=== PATIENT | female | born 2000 | race Hispanic/Latino ===

== ENCOUNTER 2021-01-28 23:03 | Emergency (ER) | payer MEDICAID ==
[~2021-01-28] VITALS: Ht 157.5 cm; Wt 60.3 kg
[2021-01-28 23:33] VITALS: BP 114/85
[2021-01-28] MEDS ORDERED: LIDOCAINE HCL-MPF 1% 2ML VIAL ONE (23:44)
[2021-01-29] MEDS ORDERED: PHENAZOPYRIDINE HCL 200 MG TABLET PO ONE
[2021-01-29] MEDS ORDERED: CEFTRIAXONE 1G VIAL IM ONE
[2021-01-29 00:26] LABS: BILIRUBIN,URINE Negative (NEGATIVE); COLOR,URINE Red (YELLOW); GLUCOSE, URINE (UA) Negative (NEGATIVE); KETONES,URINE Negative (NEGATIVE); LEUKOCYTE ESTERASE ,URINE Large (NEGATIVE); NITRATE,URINE Negative (NEGATIVE); OCCULT BLOOD,URINE Large (NEGATIVE); PH,URINE 6.5 (5.0-8.0); PROTEIN,URINE POS 2+ mg/dL (NEGATIVE)
[2021-01-29 00:28] LABS: APPEARANCE,URINE CLOUDY (CLEAR)
[2021-01-29] MEDS ORDERED: CEPH500B PO (00:32)
[2021-01-29] MEDS ORDERED: PHEN-847 PO (00:32)
[2021-01-29] MEDS ORDERED: IBUP-2070 PO (00:32)
[2021-01-29 00:39] LABS: BACTERIA,URINE Rare /HPF (None Seen); RBC,URINE 51-100 /HPF (0-1); SQUAMOUS EPITHELIAL CELL,UR Few /HPF (0-2)
== END 2021-01-29 00:51 | disposition home or self-care (01) ==
LOC: EDH 23:03
DX: N39.0 Urinary tract infection, site not specified (principal)
CPT/HCPCS: 81001; 81025; 87077; 87088; 87186; 96372; 99283; J0696; J3490

== ENCOUNTER 2021-06-18 17:18 | Emergency (ER) | payer MEDICAID ==
[~2021-06-18] VITALS: Ht 157.5 cm; Wt 59.0 kg
[~2021-06-18 17:18] MED LIST: CEPH500B PO; IBUP-2070 PO; PHEN-847 PO
[2021-06-18] MEDS ORDERED: 0.9%NACL 1000ML 1,000 ML IV ONE (18:00)
[2021-06-18 18:02] LABS: BASOPHILS % (AUTO) 0.2 % (0.0-5.0); EOSINOPHILS % (AUTO) 0.2 % (0.0-8.0); HEMATOCRIT 39.4 % (36-48); LYMPHOCYTES % (AUTO) 14.8 % (21.0-51.0); MEAN CORPUSCULAR HGB CONC 34.8 g/dL (32.0-36.0); MEAN CORPUSCULAR VOLUME 83.3 fL (80-100); MONOCYTES % (AUTO) 5.6 % (3.0-13.0); NEUTROPHILS % (AUTO) 78.7 % (40.0-77.0); PLATELET COUNT (AUTO) 241 K/uL (130-400); RED BLOOD CELL COUNT(AUTO) 4.73 MIL/uL (4.00-5.50); RED CELL DISTRIBUTION WIDTH 12.3 % (11.0-15.5); WHITE BLOOD COUNT (AUTO) 8.6 K/uL (4.8-10.8)
[2021-06-18 18:12] LABS: CREATININE 0.6 mg/dL (0.5-1.5); POTASSIUM 4.1 mmol/L (3.5-5.1)
[2021-06-18 18:38] LABS: ALBUMIN 3.8 g/dL (3.5-5.0); BILIRUBIN,TOTAL 0.6 mg/dL (0.2-1.0)
[2021-06-18 19:27] LABS: APPEARANCE,URINE Clear (CLEAR); BILIRUBIN,URINE Negative (NEGATIVE); COLOR,URINE Dark Yellow (YELLOW); GLUCOSE, URINE (UA) Negative (NEGATIVE); KETONES,URINE >=160 mg/dL (NEGATIVE); LEUKOCYTE ESTERASE ,URINE Negative (NEGATIVE); NITRATE,URINE Negative (NEGATIVE); OCCULT BLOOD,URINE Negative (NEGATIVE); PROTEIN,URINE Trace mg/dL (NEGATIVE)
[2021-06-18 19:37] LABS: RBC,URINE 0-1 /HPF (0-1)
[2021-06-18 19:38] LABS: BACTERIA,URINE Few /HPF (None Seen); MUCUS,URINE Moderate LPF (None Seen); SQUAMOUS EPITHELIAL CELL,UR Few /HPF (0-2)
[2021-06-18] MEDS ORDERED: CEPH500B PO (19:57)
[2021-06-18] MEDS ORDERED: ONDA4TAB10 PO (19:57)
[2021-06-18] MEDS ORDERED: 0.9% NACL 500ML IV.SOLN 500 ML IV ONE (20:00)
[2021-06-18 20:52] VITALS: BP 106/62
== END 2021-06-18 20:53 | disposition home or self-care (01) ==
LOC: EDH 17:18
DX: O23.40 Unspecified infection of urinary tract in pregnancy, unspecified trimester (principal); N39.0 Urinary tract infection, site not specified; O21.9 Vomiting of pregnancy, unspecified; Z3A.00 Weeks of gestation of pregnancy not specified
CPT/HCPCS: 36415; 80053; 81001; 84702; 85025; 86900; 86901; 96360; 99283; J7030; J7040

== ENCOUNTER 2021-11-02 17:22 | Observation (INO) | payer MEDICAID ==
[~2021-11-02] VITALS: Ht 157.5 cm; Wt 63.5 kg
[~2021-11-02 17:22] MED LIST changes: +ONDA4TAB10 PO
[2021-11-02 17:29] VITALS: BP 109/61
[2021-11-02 18:11] LABS: APPEARANCE,URINE CLEAR (CLEAR); BILIRUBIN,URINE NEGATIVE (NEGATIVE); COLOR,URINE YELLOW (YELLOW); GLUCOSE, URINE (UA) NEGATIVE (NEGATIVE); KETONES,URINE NEGATIVE (NEGATIVE); LEUKOCYTE ESTERASE ,URINE NEGATIVE (NEGATIVE); NITRATE,URINE NEGATIVE (NEGATIVE); OCCULT BLOOD,URINE NEGATIVE (NEGATIVE); PH,URINE 6.5 (5.0-8.0); PROTEIN,URINE NEGATIVE (NEGATIVE); UROBILINOGEN,URINE 0.2 mg/dL (0.2-1.0)
[2021-11-02 20:12] LABS: AMPHET/METH SCREEN,URINE NEGATIVE (NEGATIVE); BENZODIAZEPINES SCREEN,URINE NEGATIVE (NEGATIVE); CANNABINOID SCREEN,URINE NEGATIVE (NEGATIVE); COCAINE SCREEN,URINE NEGATIVE (NEGATIVE); PHENCYCLIDINE SCREEN,URINE NEGATIVE (NEGATIVE)
[2021-11-05 10:14] LABS: OPIATES SCREEN URINE Negative ng/mL (Cutoff=300)
== END 2021-11-02 21:15 | disposition home or self-care (01) ==
LOC: EDH 17:22 → LDH 17:37
PROVIDERS: ADMIT Obstetrics & Gynecology; ATTEND Obstetrics & Gynecology
DX: O26.893 Other specified pregnancy related conditions, third trimester (principal); R10.9 Unspecified abdominal pain; Z3A.28 28 weeks gestation of pregnancy; Z79.899 Other long term (current) drug therapy
CPT/HCPCS: 59025; 80305; 81003; G0378 ×3; G0379